=== PATIENT | male | born 1970 | race Caucasian/White ===

== ENCOUNTER 2017-02-10 11:55 | Outpatient (CLI) | payer SELFPAY ==
[2017-02-10 12:46] LABS: ALT (SGPT) 23 U/L (8-55); AST (SGOT) 15 U/L (5-34); Albumin 4.3 g/dL (3.5-5.0); Alkaline Phosphatase 72 U/L (40-150); Anion Gap 15 mmol/L (10-20); BUN (Urea Nitrogen) 13 mg/dL (8.9-20.6); Bilirubin, Total 0.3 mg/dL (0.2-1.2); Calc. Creatinine Clearance 0 mL/min (70-130); Calcium 9.3 mg/dL (7.8-10.44); Carbon Dioxide 22 mmol/L (22-29); Cardiac Risk 5.9 (Less than 4.5); Chloride 107 mmol/L (98-107); Cholesterol 229 mg/dl (< 200 Desired); Estimated GFR-MDRD Greater than 90; Glucose 132 mg/dL (70-105); HDL Cholesterol 39 mg/dL (>60 Neg Risk); LDL Cholesterol, Calculated 157 mg/dL; Potassium 4.4 mmol/L (3.5-5.1); Protein, Total 7.3 g/dL (6.0-8.3); Sodium 140 mmol/L (136-145); Triglycerides 166 mg/dL (Less than 150)
[2017-02-10 13:20] LABS: Hemoglobin A1c 6.6 % (4.0-6.0)
[2017-02-10 13:38] LABS: #Basophils 0.1 thou/uL (0.0-0.2); #Eosinphils 0.3 thou/uL (0.0-0.7); #Lymphocytes 2.4 thou/uL (1.20-3.40); #Monocytes 0.6 thou/uL (0.11-0.59); #Neutrophils 2.8 thou/uL (1.40-6.50); %Basophils 1.6 % (0.0-1.0); %Eosinophils 5.1 % (0.0-10.0); %Lymphocytes 38.3 % (21.0-51.0); %Monocytes 9.8 % (0.0-10.0); %Neutrophils 45.3 % (42.0-75.0); Hemoglobin 15.1 g/dL (14.0-18.0); Mean Corpuscular HGB CONC 33.7 g/dL (32.0-36.0); Mean Corpuscular Hemoglobin 30.4 pg (27.0-31.0); Mean Platelet Volume 7.6 fL (7.4-10.4); Platelet Count 197 thou/uL (130-400); RBC Distribution Width 11.6 % (11.5-14.5); Red Blood Cell (RBC) Count 4.96 mill/uL (4.70-6.10); White Blood Cell (WBC) Count 6.2 thou/uL (4.8-10.8)
[2017-02-10 17:51] LABS: Creatinine, Urine 158.77 mg/dL (63-166); Microalbumin Urine Less than 1.0 mg/dL (0.5-50.0); Microalbumin/Creat Ratio 6.3 mg/g (Less than 30)
== END 2017-02-10 11:56 | disposition home or self-care (01) ==
LOC: NAVSJIPCSP 11:55
DX: E11.65 Type 2 diabetes mellitus with hyperglycemia (principal)
CPT/HCPCS: 36415; 80053; 80061; 82043; 83036; 85025

== ENCOUNTER 2023-12-02 18:13 | Emergency (ER) | payer BC ==
[2023-12-02] MEDS ORDERED: Lidocaine 1% w/Epinephrine 1:100K 20 ML VIAL ONE (20:11)
== END 2023-12-02 21:08 | disposition home or self-care (01) ==
LOC: NAV ERS 18:13
DX: L02.212 Cutaneous abscess of back [any part, except buttock and flank] (principal); E11.9 Type 2 diabetes mellitus without complications; F17.290 Nicotine dependence, other tobacco product, uncomplicated; E78.00 Pure hypercholesterolemia, unspecified; Z79.899 Other long term (current) drug therapy; Z79.84 Long term (current) use of oral hypoglycemic drugs
CPT/HCPCS: 10060

== ENCOUNTER 2023-12-04 21:53 | Emergency (ER) | payer BC | END 2023-12-04 22:55 | disposition home or self-care (01) | LOC: NAV ERS 21:53 | DX: Z48.00 Encounter for change or removal of nonsurgical wound dressing (principal); E11.9 Type 2 diabetes mellitus without complications; E78.00 Pure hypercholesterolemia, unspecified; F17.290 Nicotine dependence, other tobacco product, uncomplicated; Z79.84 Long term (current) use of oral hypoglycemic drugs; Z79.899 Other long term (current) drug therapy | CPT/HCPCS: 10060 ==

== ENCOUNTER 2023-12-06 19:55 | Emergency (ER) | payer BC | END 2023-12-06 20:18 | disposition home or self-care (01) | LOC: NAV ERS 19:55 | DX: Z48.00 Encounter for change or removal of nonsurgical wound dressing (principal); L02.212 Cutaneous abscess of back [any part, except buttock and flank]; E11.9 Type 2 diabetes mellitus without complications; E78.00 Pure hypercholesterolemia, unspecified; F17.290 Nicotine dependence, other tobacco product, uncomplicated; Z79.899 Other long term (current) drug therapy; Z79.84 Long term (current) use of oral hypoglycemic drugs | CPT/HCPCS: 99282 ==

== ENCOUNTER 2023-12-08 20:46 | Emergency (ER) | payer BC | END 2023-12-08 21:25 | disposition home or self-care (01) | LOC: NAV ERS 20:46 | DX: L02.212 Cutaneous abscess of back [any part, except buttock and flank] (principal); E78.00 Pure hypercholesterolemia, unspecified; E11.9 Type 2 diabetes mellitus without complications; F17.290 Nicotine dependence, other tobacco product, uncomplicated; Z79.84 Long term (current) use of oral hypoglycemic drugs; Z79.899 Other long term (current) drug therapy | CPT/HCPCS: 87070; 87077; 87186; 87205; 99283 ==

== ENCOUNTER 2024-03-10 23:37 | Emergency (ER) | payer BC ==
[2024-03-10] MEDS ORDERED: Lidocaine 1% (PF) 30 ML VIAL ONE (23:52)
[2024-03-11] MEDS ORDERED: Sulfameth/Trimethoprim DS 800-160mg TAB ONE (00:15)
[2024-03-11] MEDS ORDERED: Boostrix 0.5 ML (Tdap) VIAL (>/=7 yrs of age) ONE (00:16)
== END 2024-03-11 00:25 | disposition home or self-care (01) ==
LOC: NAV ERS 23:37
DX: L02.212 Cutaneous abscess of back [any part, except buttock and flank] (principal); F17.210 Nicotine dependence, cigarettes, uncomplicated; E11.9 Type 2 diabetes mellitus without complications
CPT/HCPCS: 10060; 87070; 87077; 87186; 87205; 90471; 90715

== ENCOUNTER 2024-03-13 21:11 | Emergency (ER) | payer BC | END 2024-03-13 22:00 | disposition home or self-care (01) | LOC: NAV ERS 21:11 | DX: L02.212 Cutaneous abscess of back [any part, except buttock and flank] (principal); E11.9 Type 2 diabetes mellitus without complications; F17.290 Nicotine dependence, other tobacco product, uncomplicated | CPT/HCPCS: 10060 ==

== ENCOUNTER 2024-03-16 21:22 | Emergency (ER) | payer BC | END 2024-03-16 21:40 | disposition home or self-care (01) | LOC: NAV ERS 21:22 | DX: L02.212 Cutaneous abscess of back [any part, except buttock and flank] (principal); E11.9 Type 2 diabetes mellitus without complications; F17.290 Nicotine dependence, other tobacco product, uncomplicated | CPT/HCPCS: 99282 ==